=== PATIENT | female | born 1960 | race Two or more races ===

== ENCOUNTER → 2017-01-22 | Outpatient (CLI) | payer OTHER ==
--- NOTE | 2017-01-22 15:17 | REPMRS ---
Patient History The patient states she has not had a clinical breast exam in over a year. No known family history of cancer. Digital Woman Screen Mammo: January 22, 2017 - Exam #: [id number] Bilateral CC and MLO view(s) were taken. Technologist: Sarah Jurado, Technologist Prior study comparison: October 09, 2015, digital woman screen mammo performed at [facility]. March 2014, bilateral mammogram, performed at [facility]. FINDINGS: There are scattered fibroglandular densities. There is a moderate amount of residual fibroglandular tissue which is fairly symmetric. There is no interval development of dominant mass, architectural distortion, or clustered microcalcification typical of malignancy. There has been no change in the appearance of the mammogram from the prior studies. ASSESSMENT: BI-RADS/ACR category 1 mammogram. Negative. Recommendation Routine screening mammogram of both breasts in 1 year (for women over age 40). This mammogram was interpreted with the aid of an FDA-approved computer-aided dectection system. Electronically Signed By: Guero Power MD 01/22/17 [id number]
== END ==
LOC: M WHC 14:01
PROVIDERS: ATTEND Nurse Practitioner Adult Health
DX: Z12.31 Encounter for screening mammogram for malignant neoplasm of breast (principal)

== ENCOUNTER → 2017-03-18 | Outpatient (CLI) | payer OTHER ==
[2017-03-18 14:42] LABS: MEAN CORPUSCULAR HEMOGLOBIN 28.2 pg (27.0-33.0); MEAN CORPUSCULAR HGB CONC 33.1 g/dl (32.0-36.5); MEAN CORPUSCULAR VOLUME 85.2 fl (80.0-96.0); RED CELL DISTRIBUTION WIDTH 14.1 % (11.5-14.5)
[2017-03-18 15:56] LABS: BILIRUBIN,TOTAL 0.4 MG/DL (0.2-1.0); CALCIUM LEVEL 8.7 MG/DL (8.5-10.1); CREATININE FOR GFR 1.03 MG/DL (0.55-1.02); GLOMERULAR FILTRATION RATE 58.8 (>51); POTASSIUM SERUM 4.3 MEQ/L (3.5-5.1)
== END ==
LOC: M WUC 11:59
PROVIDERS: ATTEND Nurse Practitioner Adult Health
DX: Z00.00 Encounter for general adult medical examination without abnormal findings (principal)

== ENCOUNTER → 2017-10-20 | Outpatient (CLI) | payer OTHER ==
--- NOTE | 2017-10-20 13:05 | REP ---
Clinical: Left upper extremity pain . Technique: Hernandez scale and color Doppler evaluation using linear high frequency transducer. Findings: Ultrasound examination of the left upper extremity including visualized jugular, subclavian, axillary, duplicated brachial, basilic and cephalic veins demonstrate normal flow and wave patterns in response to respiration and augmentation. There is no evidence for deep venous thrombosis. Impression: No evidence for deep venous thrombosis to the left upper extremity. Signed by Chava Johnson MD 10/20/2017 12:56 P
== END ==
LOC: M RAD 11:40
PROVIDERS: ATTEND Nurse Practitioner Adult Health
DX: M79.602 Pain in left arm (principal)

== ENCOUNTER → 2017-12-09 | Outpatient (CLI) | payer OTHER ==
[2017-12-09 16:45] LABS: BASO % 0.1 % (0.0-1.0); EOS # 0.2 10^3/uL (0.0-0.50); EOS % 2.2 % (0.0-3.0); HEMATOCRIT 41.2 % (36.0-47.0); HEMOGLOBIN 13.9 g/dl (12.0-16.0); IMMATURE GRANULOCYTE % 0.3 % (0-0); LYMPH # 1.9 10^3/uL (1.5-4.5); LYMPH % 27.9 % (24.0-44.0); MEAN CORPUSCULAR HEMOGLOBIN 28.1 pg (27.0-33.0); MEAN CORPUSCULAR HGB CONC 33.7 g/dl (32.0-36.5); MEAN CORPUSCULAR VOLUME 83.2 fl (80.0-96.0); MONO # 0.5 10^3/uL (0.0-0.8); MONO % 6.9 % (0.0-5.0); NEUTROPHILS # 4.3 10^3/uL (1.8-7.7); NEUTROPHILS % 62.6 % (36.0-66.0); PLATELET COUNT, AUTOMATED 258 10^3/uL (150-450); RED BLOOD COUNT 4.95 10^6/uL (4.00-5.40); RED CELL DISTRIBUTION WIDTH 13.2 % (11.5-14.5); WHITE BLOOD COUNT 6.9 10^3/uL (4.0-10.0)
[2017-12-09 17:11] LABS: FOLLICLE STIMULATING HORMONE 25.1 mIU/mL; LUTEINIZING HORMONE 22.8 mIU/mL
[2017-12-09 17:17] LABS: FREE T4 1.16 NG/DL (0.76-1.46)
== END ==
LOC: M WUC 15:24
DX: N92.1 Excessive and frequent menstruation with irregular cycle (principal)
CPT/HCPCS: 83001

== ENCOUNTER 2020-03-21 13:16 | Emergency (ER) | payer OTHER ==
[~2020-03-21] VITALS: Ht 160 cm; Wt 82.2 kg
[2020-03-21] MEDS ORDERED: ASPI81TA85 PO (13:33)
[2020-03-21] MEDS ORDERED: VITAMIN D PO (13:33)
[2020-03-21] MEDS ORDERED: PREM0.6254 PO (13:33)
[2020-03-21] MEDS ORDERED: MULTCAP PO (13:33)
--- NOTE | 2020-03-21 13:58 | REP ---
Portable chest x-ray: Single view. History: Chest pain. Comparison study: October 08, 2016. Findings: The lungs are symmetrically aerated and clear. The pleural angles are sharp. Heart size is normal. Pulmonary vasculature is not increased. No significant bony abnormality is seen. Impression: No acute disease. Electronically Signed by Shilo Power MD 03/21/2020 01:49 P
[2020-03-21 14:12] LABS: BASO % 0.2 % (0.0-1.0); EOS # 0.1 10^3/uL (0.0-0.5); EOS % 1.1 % (0.0-3.0); HEMATOCRIT 39.9 % (36.0-47.0); HEMOGLOBIN 13.5 g/dl (12.0-15.5); LYMPH # 1.5 10^3/uL (1.5-5.0); LYMPH % 23.2 % (24.0-44.0); MEAN CORPUSCULAR HEMOGLOBIN 28.9 pg (27.0-33.0); MEAN CORPUSCULAR HGB CONC 33.8 g/dl (32.0-36.5); MEAN CORPUSCULAR VOLUME 85.4 fl (80.0-96.0); MONO # 0.5 10^3/uL (0.0-0.8); MONO % 7.1 % (0.0-5.0); NEUTROPHILS # 4.5 10^3/uL (1.5-8.5); NEUTROPHILS % 68.1 % (36.0-66.0); PLATELET COUNT, AUTOMATED 291 10^3/uL (150-450); RED BLOOD COUNT 4.67 10^6/uL (4.00-5.40); WHITE BLOOD COUNT 6.6 10^3/uL (4.0-10.0)
[2020-03-21 14:27] LABS: INR 0.95; PROTHROMBIN TIME 12.4 SECONDS (11.8-14.0)
[2020-03-21 14:36] LABS: ALBUMIN 3.9 GM/DL (3.2-5.2); ALT/SGPT 36 U/L (12-78); BILIRUBIN,DIRECT 0.1 MG/DL (0.0-0.2); BILIRUBIN,TOTAL 0.4 MG/DL (0.2-1.0); CK-MB VALUE MASS < 1.0 NG/ML (<3.6); CPK CREATINE PHOSPHOKINASE 148 U/L (26-192); LIPASE 180 U/L (73-393); MB/CK RELATIVE INDEX 0.68 (< OR =4); TROPONIN I < 0.02 NG/ML (< 0.10)
[2020-03-21 15:19] LABS: D-DIMER QUANT 289.96 ng/ml (<500)
[2020-03-21 15:45] VITALS: BP 139/68
--- NOTE | 2020-03-21 16:45 | ECGEPIP ---
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
== END 2020-03-21 15:58 | disposition home or self-care (01) ==
LOC: M ED 13:16
DX: I20.8 Other forms of angina pectoris (principal); R06.02 Shortness of breath; R42 Dizziness and giddiness; Z79.82 Long term (current) use of aspirin

== ENCOUNTER → 2020-04-13 | Outpatient (CLI) | payer OTHER ==
[~2020-04-13] MED LIST: ASPI81TA85 PO; MULTCAP PO; PREM0.6254 PO; VITAMIN D PO
[2020-04-13 16:20] LABS: CALCIUM LEVEL 9.6 MG/DL (8.8-10.2); CREATININE FOR GFR 1.16 MG/DL (0.55-1.30); GLOMERULAR FILTRATION RATE 50.7 (>45); POTASSIUM SERUM 4.6 MEQ/L (3.5-5.1)
== END ==
LOC: M WUC 13:45
PROVIDERS: ATTEND Internal Medicine Cardiovascular Disease
DX: I10 Essential (primary) hypertension (principal)

== ENCOUNTER → 2021-06-06 | Outpatient (CLI) | payer OTHER ==
[~2021-06-06] MED LIST changes: -ASPI81TA85 PO; +ASPI81TA86 PO
[2021-06-06 16:11] LABS: HEMOGLOBIN A1c 5.5 %
[2021-06-06 16:27] LABS: ALBUMIN 3.9 GM/DL (3.2-5.2); BILIRUBIN,TOTAL 0.5 MG/DL (0.2-1.0); CALCIUM LEVEL 9.6 MG/DL (8.8-10.2); CHOLESTEROL RISK RATIO 3.09 (<5); CREATININE FOR GFR 1.07 MG/DL (0.55-1.30); GLOMERULAR FILTRATION RATE 55.5 (>45); POTASSIUM SERUM 4.7 MEQ/L (3.5-5.1); THYROID STIMULATING HORMONE 2.4 uIU/ML (0.358-3.740); TOTAL PROTEIN 8.1 GM/DL (6.4-8.2)
[2021-06-06 16:39] LABS: TOTAL 25(OH) VITAMIN D 49.8 NG/ML (30.0-100.0)
== END ==
LOC: M WUC 13:01
PROVIDERS: ATTEND Nurse Practitioner Adult Health
DX: Z00.00 Encounter for general adult medical examination without abnormal findings (principal); Z13.1 Encounter for screening for diabetes mellitus; E55.9 Vitamin D deficiency, unspecified; Z13.220 Encounter for screening for lipoid disorders

== ENCOUNTER → 2021-06-27 | Outpatient (CLI) | payer OTHER ==
--- NOTE | 2021-06-27 16:48 | REPMRS ---
Patient History The patient states she has not had a clinical breast exam in over a year. No known family history of cancer. Taking estrogen for 3 years. Patient states no breast complaints today. Patient has signed MRS History Sheet. Digital Woman Screen Mammo: June 27, 2021 - Exam #: [id number] Bilateral CC and MLO view(s) were taken. Technologist: Deepali Leggett, Technologist Prior study comparison: January 22, 2017, digital woman screen mammo performed at [facility]. October 09, 2015, digital woman screen mammo performed at [facility]. FINDINGS: The breast tissue is heterogeneously dense. This may lower the sensitivity of mammography. Screening. Digital screening (2D) mammography was performed bilaterally in the CC and MLO projections. Additionally, breast tomosynthesis (3D mammography) was performed bilaterally in the CC and MLO projections. Todays exam was compared to the prior exam/exams. By history, the patient has no complaints of a palpable breast abnormality or other significant breast complaints. The breasts are unchanged in size and shape. There are no baldo-soft tissue densities or spiculated masses. There is no internal architectural distortion. There are no suspicious baldo-calcific clusters. Skin thickening or nipple retraction is not present. IMPRESSION: BI-RADS Category 2- Benign Findings. There is no evidence of malignant alteration of the breasts. Followup examination recommended in one year. The Volpara volumetric breast density category is C, the breasts are heterogenously dense which may obscure small masses. This mammogram was read with the assistance of [facility] [employer]an FDA approved computer aided detection system for mammography. The lifetime Tyrer-Cuzick score is 7.8 % Due to the density of the breasts or Tyrer Cuzick score of 20% or greater, MRI/whole breast screening ultrasound is warranted. Negative x-ray reports should not delay surgical consultation if a dominant or clinically suspicious mass is present. Not all breast cancers can be identified by mammography. Therefore, we recommend that you continue to perform regular breast self-examination and physical examination and then promptly contact your physician of any concerns or changes. Adenosis and dense breasts may obscure an underlying neoplasm. Assessment: BI-RADS/ACR category 2 mammogram. Benign Findings. Recommendation Routine screening mammogram of both breasts in 1 year. Electronically Signed By: Darian Ellis MD 06/27/21 0059
== END ==
LOC: M WHC 15:01
PROVIDERS: ATTEND Nurse Practitioner Adult Health
DX: Z12.31 Encounter for screening mammogram for malignant neoplasm of breast (principal)

== ENCOUNTER → 2021-09-19 | Outpatient (CLI) | payer OTHER, BC ==
--- NOTE | 2021-09-19 17:09 | REP ---
INDICATION: POST MENOPAUSAL BLEEDING. COMPARISON: None. TECHNIQUE: Transvesical and transvaginal imaging FINDINGS: The uterus measures 9 x 5.8 x 6 cm. Within the uterine parenchyma adjacent to the endometrial echo complex there is a hypoechoic nodule which measures 2 x 1.6 x 2.1 cm. The endometrial echo complex is itself is heterogenous and poorly demarcated having an estimated greatest thickness of 4 mm. Since it is poorly visualized could be thicker and poorly imaged areas. The right ovary measures 3.1 x 2.7 x 3.3 cm. Within the right ovary there is a 2 x 1.3 x 1.8 cm sized hypoechoic solid-appearing nodule. The right ovarian RI is 0.69 per Left ovary measures 2.7 x 2.4 x 1.9 cm and is within normal limits with an RI 0.61. Urinary bladder measures 11 x 7 x 9 cm. IMPRESSION: 1. Uterine myomatous changes are suspected as described above. 2. Endometrial echo complex difficult to visualize as described above. Consider further evaluation with pre and post gadolinium enhanced pelvic MRI. 3. Solid-appearing nodule within the right ovary as described above exact etiology uncertain. This could represent a hemorrhagic cyst, however, follow-up is recommended. This could also be evaluated with pelvic MRI. <Electronically signed by Mario Hooks > 09/19/21 [id number]
== END ==
LOC: M RAD 12:51
PROVIDERS: ATTEND Obstetrics & Gynecology
DX: N95.0 Postmenopausal bleeding (principal)

== ENCOUNTER → 2022-11-28 | Outpatient (CLI) | payer OTHER, BC | LOC: M WHC 13:44 | PROVIDERS: ATTEND Nurse Practitioner Family | DX: Z12.31 Encounter for screening mammogram for malignant neoplasm of breast (principal) ==

== ENCOUNTER → 2022-11-28 | Outpatient (REF) | payer OTHER | LOC: M PLALAB 15:31 | PROVIDERS: ATTEND Nurse Practitioner Family | DX: Z12.4 Encounter for screening for malignant neoplasm of cervix (principal) | CPT/HCPCS: 87624; G0123 ==

== ENCOUNTER → 2023-07-30 | Outpatient (CLI) | payer OTHER, BC | LOC: M SOG 14:40 | PROVIDERS: ATTEND Physician Assistant | DX: M79.645 Pain in left finger(s) (principal) ==

== ENCOUNTER 2024-04-08 06:05 | Day surgery (SDC) | payer OTHER, BC ==
[~2024-04-08] VITALS: Ht 158.8 cm; Wt 81.1 kg
[~2024-04-08 06:05] MED LIST changes: +ECOT81TA5 PO; +OMEG10002 PO; +THERTAB52 PO; +VITA100093 PO
[2024-04-08] MEDS: LIDOCAINE W/EPINEPHRINE 1% 20ML VIAL XX ONE (07:04)
[2024-04-08] MEDS: SODIUM BICARBONATE 8.4% INJ 50MEQ 50ML VIAL XX ONE (07:04)
[2024-04-08] MEDS: SODIUM BICARBONATE 8.4% INJ 50MEQ 50ML VIAL As Ordered ONE (07:54)
[2024-04-08] MEDS: LIDOCAINE W/EPINEPHRINE 1% 20ML VIAL As Ordered ONE (07:54)
[2024-04-08 08:05] VITALS: BP 192/83; TEMP 97.3; O2SAT 97
[2024-04-08] MEDS: BACITRACIN OINTMENT 30GM TUBE As Ordered ONE (08:07)
== END 2024-04-08 08:15 | disposition home or self-care (01) ==
LOC: M SDC 06:05
PROVIDERS: ATTEND Orthopaedic Surgery Hand Surgery
DX: M65.342 Trigger finger, left ring finger (principal)

== ENCOUNTER → 2024-05-10 | Outpatient (REF) | payer OTHER, BC | LOC: M SFHCPLAZ 15:00 | PROVIDERS: ATTEND Physician Assistant Medical | DX: R30.0 Dysuria (principal) ==

== ENCOUNTER → 2024-07-05 | Outpatient (REF) | payer OTHER, BC ==
[2024-07-05 11:30] LABS: HEMATOCRIT 41.7 % (36.0-47.0); HEMOGLOBIN 14.3 g/dl (12.0-15.5); MEAN CORPUSCULAR HEMOGLOBIN 29.2 pg (27.0-33.0); MEAN CORPUSCULAR HGB CONC 34.3 g/dl (32.0-36.5); MEAN CORPUSCULAR VOLUME 85.3 fl (80.0-96.0); PLATELET COUNT, AUTOMATED 253 10^3/uL (150-450); RED BLOOD COUNT 4.89 10^6/uL (4.00-5.40); WHITE BLOOD COUNT 6.2 10^3/uL (4.0-10.0)
[2024-07-05 11:36] LABS: ALBUMIN 3.8 G/DL (3.2-5.2); BILIRUBIN,TOTAL 0.5 MG/DL (0.3-1.2); CALCIUM LEVEL 9.4 MG/DL (8.3-10.6); CHOLESTEROL RISK RATIO 3.34 (<5); CREATININE FOR GFR 1.13 MG/DL (0.55-1.30); GLOMERULAR FILTRATION RATE 51.6 (>45); HDL CHOLESTEROL 49.1 MG/DL (>40); LDL CHOLESTEROL 74.9 MG/DL (<100); NON-HDL-C 114.9 MG/DL; POTASSIUM SERUM 4.8 MMOL/L (3.5-5.1); TOTAL PROTEIN 7.6 G/DL (5.7-8.2)
[2024-07-05 11:38] LABS: FREE T4 1.26 NG/DL (0.89-1.76); THYROID STIMULATING HORMONE 3.297 uIU/ML (0.55-4.78)
[2024-07-05 11:47] LABS: HEMOGLOBIN A1c 5.3 % (4.0-6.0)
== END ==
LOC: M SFHCPLAZ 08:01
PROVIDERS: ATTEND Nurse Practitioner Adult Health
DX: Z00.00 Encounter for general adult medical examination without abnormal findings (principal); Z13.1 Encounter for screening for diabetes mellitus; Z13.220 Encounter for screening for lipoid disorders

== ENCOUNTER → 2025-03-02 | Outpatient (CLI) | payer MEDICARE, BC | LOC: M WHC 15:13 | PROVIDERS: ATTEND Nurse Practitioner Adult Health | DX: Z12.31 Encounter for screening mammogram for malignant neoplasm of breast (principal); R92.323 Mammographic fibroglandular density, bilateral breasts; R92.8 Other abnormal and inconclusive findings on diagnostic imaging of breast ==

== ENCOUNTER → 2025-03-13 | Outpatient (CLI) | payer MEDICARE, BC | LOC: M WHC 13:59 | PROVIDERS: ATTEND Nurse Practitioner Adult Health | DX: R92.2 Inconclusive mammogram (principal); R92.323 Mammographic fibroglandular density, bilateral breasts | CPT/HCPCS: 77065; G0279 ==

== ENCOUNTER → 2025-03-14 | Outpatient (CLI) | payer MEDICARE, BC | LOC: M RAD 14:58 | PROVIDERS: ATTEND Nurse Practitioner Adult Health | DX: N92.6 Irregular menstruation, unspecified (principal) ==

== ENCOUNTER → 2025-05-30 | Outpatient (REF) | payer MEDICARE, BC ==
[2025-05-30 14:33] LABS: PLATELET COUNT, AUTOMATED 261 10^3/uL (150-450)
[2025-05-30 14:40] LABS: ALT/SGPT 27.0 U/L (7.0-40); AST/SGOT 22.0 U/L (<34); CALCIUM LEVEL 9.4 MG/DL (8.3-10.6); CARBON DIOXIDE LEVEL 30.0 MMOL/L (20-31); CHLORIDE LEVEL 105.0 MMOL/L (98-107); CHOLESTEROL LEVEL 173.0 MG/DL (<200); CHOLESTEROL RISK RATIO 3.35 (<5); CREATININE FOR GFR 1.15 MG/DL (0.55-1.30); GLOMERULAR FILTRATION RATE 52.9 (>45); LDL CHOLESTEROL 79.3 MG/DL (<100); NON-HDL-C 121.5 MG/DL; POTASSIUM SERUM 4.5 MMOL/L (3.5-5.1); SODIUM LEVEL 140.0 MMOL/L (136-145); TRIGLYCERIDES LEVEL 211.0 MG/DL (<150)
[2025-05-30 14:41] LABS: FREE T4 1.22 NG/DL (0.89-1.76)
[2025-05-30 15:23] LABS: ESTIMATED AVERAGE GLUCOSE 103.0 MG/DL (60-110)
== END ==
LOC: M SFHCPLAZ 08:17
PROVIDERS: ATTEND Nurse Practitioner Adult Health
DX: Z00.00 Encounter for general adult medical examination without abnormal findings (principal); I10 Essential (primary) hypertension; Z13.220 Encounter for screening for lipoid disorders; E55.9 Vitamin D deficiency, unspecified; L65.9 Nonscarring hair loss, unspecified; Z79.899 Other long term (current) drug therapy

== ENCOUNTER 2025-09-29 06:56 | Day surgery (SDC) | payer MEDICARE, BC ==
[~2025-09-29] VITALS: Ht 157.5 cm; Wt 78.7 kg
[~2025-09-29 06:56] MED LIST changes: +KP F1200 PO; +LOSA50TA28 PO
[2025-09-29] MEDS ORDERED: ONDANSETRON 4MG/2ML VIAL As Ordered ONE (07:51)
[2025-09-29] MEDS ORDERED: dexAMETHasone 4 MG/ML 1 ML VIAL As Ordered ONE (07:51)
[2025-09-29] MEDS ORDERED: ACETAMINOPHEN 1000MG/100ML IV BAG As Ordered ONE (07:51)
[2025-09-29] MEDS ORDERED: LIDOCAINE 2% 100 MG/5 ML SDV (FOR ANES.) As Ordered ONE (07:51)
[2025-09-29] MEDS ORDERED: KETOROLAC 30 MG/ML 1 ML VIAL As Ordered ONE (07:52)
[2025-09-29 07:53] LABS: ALT/SGPT 33.0 U/L (7.0-40); AST/SGOT 26.0 U/L (<34); CALCIUM LEVEL 9.1 MG/DL (8.3-10.6); CARBON DIOXIDE LEVEL 30.0 MMOL/L (20-31); CHLORIDE LEVEL 101.0 MMOL/L (98-107); CREATININE FOR GFR 1.22 MG/DL (0.55-1.30); GLOMERULAR FILTRATION RATE 49.3 (>45); POTASSIUM SERUM 4.0 MMOL/L (3.5-5.1); SODIUM LEVEL 139.0 MMOL/L (136-145)
[2025-09-29] MEDS ORDERED: MIDAZOLAM INJ 2 MG/2 ML VIAL As Ordered ONE (07:54)
[2025-09-29] MEDS ORDERED: LR 1,000 ML IV SCH (08:05)
[2025-09-29] MEDS: SILVER NITRATE APPLICATOR (1 = QTY 10) As Ordered ONE (08:25)
[2025-09-29] MEDS: LIDOCAINE 1% SDV 30 ML VIAL As Ordered ONE (09:03)
[2025-09-29 09:24] VITALS: BP 118/61; TEMP 97.3; O2SAT 96
== END 2025-09-29 10:03 | disposition home or self-care (01) ==
LOC: M SDC 06:56
PROVIDERS: ATTEND Obstetrics & Gynecology
DX: N95.0 Postmenopausal bleeding (principal); N93.9 Abnormal uterine and vaginal bleeding, unspecified; N84.0 Polyp of corpus uteri; I10 Essential (primary) hypertension; Z79.899 Other long term (current) drug therapy
CPT/HCPCS: 36415; 58558; 80053; 85014; 85018; 88305; J0131; J1100; J1885; J2250; J2405; J3010